=== PATIENT | female | born 1970 | race Caucasian/White ===

== ENCOUNTER 2018-05-09 05:16 | Observation (INO) ==
[2018-05-09] MEDS ORDERED: 0.9 % Sodium Chloride 1,000 ML IVC ONE ×2 (05:33→09:05)
[2018-05-09] MEDS ORDERED: Pantoprazole 40 MG VIAL IVP ONE (05:33)
[2018-05-09] MEDS ORDERED: Ketamine *HR* 14 MG in 0.9 % Sodium Chloride 100 ML IVPB ONE (05:34)
[2018-05-09] MEDS ORDERED: Isovue-370 500 ML INFUS..BTL IV ONE (05:34)
--- NOTE | 2018-05-09 05:37 | Emergency Department Note ---
Disposition Clinical Impression: Abdominal pain Qualifiers: Abdominal location: epigastric Qualified Code(s): R10.13 - Epigastric pain Disposition: Still a Patient Condition: Fair Referrals: Mau Ellis MD [Primary Care Provider] - Forms: ED Satisfaction Letter, Work/School Release Abdominal Pain HPI - General Chief Complaint: ED Abdominal Pain Stated Complaint: vomiting x2 days hx of pancreatitis Time Seen by Provider: 05/09/18 05:26 Source: patient Mode of arrival: ambulatory Limitations: no limitations Nursing Notes Reviewed: Yes Vital Signs Reviewed: Yes - History of Present Illness HPI Narrative: 47-year-old female with history of chronic pancreatitis, hypertension, presents for evaluation of abdominal pain and vomiting. Patient states she has had abdominal pain over the past couple days. Notes it to be in the epigastrium. Notes pain is constant. It patient also notes several episodes of nonbilious emesis. Patient states she is not been able to keep any food or liquids down. Patient states that she has required admissions for her chronic pancreatitis in the past. Reports having GB surgery in the past. Does admit to alcohol use in the remote past but no recent alcohol use. Denies any change in bowels or bladder. Pain Scale: 9 - Related Data Home Medications Medication Instructions Recorded Confirmed ALPRAZolam [Xanax 1 MG Tablet] 1 mg PO TID PRN 10/18/15 07/28/16 Carvedilol [Coreg] 25 mg PO BID 10/18/15 07/28/16 Omeprazole [PriLOSEC] 20 mg PO BID 10/18/15 07/28/16 Oxycodone HCl [Roxicodone 30] 30 mg PO Q6HR PRN 10/18/15 07/28/16 Tizanidine HCl [Zanaflex] 4 mg PO TID PRN 07/28/16 07/28/16 Previous Rx's Medication Instructions Recorded Amoxicillin 875 mg PO BID #20 tablet 11/10/16 DiphenhydraMINE [Benadryl] 25 mg PO Q8HR PRN #20 capsule 11/10/16 Guaifenesin/Pseudoephedrne HCl 1 each PO BID #20 tab.er.12h 11/10/16 [Mucinex D ER 1,200-120 mg Tab] Allergies Allergy/AdvReac Type Severity Reaction Status Date / Time cephalexin [From Keflex] AdvReac Chills Verified 07/22/17 13:28 sumatriptan [From Imitrex] AdvReac Nausea Verified 07/22/17 13:28 All systems ED: reviewed and negative except as stated. Constitutional: Denies: fever Respiratory: Denies: cough Gastrointestinal: Reports: abdominal pain, nausea, vomiting. Denies: diarrhea, constipation Abdominal Pain PMH - Past Medical History Medical history: Reports: hypertension Female Surgical History: Reports: angioplasty/stent, orthopedic, other Psychiatric history: Reports: no psych history - Social History Smoking status: Never smoker Alcohol use: Reports: none Drug use: Reports: none Physical Exam - General Limitations: no limitations General appearance: alert, in no apparent distress - Head Head exam: atraumatic, normocephalic, normal inspection - Eye Eye exam: Present: normal appearance - ENT ENT exam: normal exam, mucous membranes moist - Neck Neck exam: Present: normal inspection, trachea midline - Chest Chest inspection: Present: normal inspection, symmetric chest wall rise - Respiratory Respiratory exam: Present: normal lung sounds bilaterally. Absent: respiratory distress - Cardiovascular Cardiovascular exam: Present: regular rate, normal rhythm. Absent: systolic murmur - Abdominal Exam Abdominal exam: Present: soft, tenderness. Absent: guarding, rebound - Extremities Exam Extremities exam: Present: normal inspection. Absent: pedal edema - Back Exam Back exam: Present: normal inspection - Neurological Exam Neurological exam: Present: alert, oriented X3 - Skin Skin exam: Present: warm, dry, intact, normal color Course Course Narrative: Patient seen and examined. Patient appears uncomfortable. Patient will get basic labs, CT scan abd/pelvis. Disposition pending. - Reevaluation(s) Reevaluation #1: Patient is resting comfortably. Time: 06:16 Vital Signs Temperature 97.6 F 05/09/18 05:19 Pulse Rate 76 05/09/18 05:19 Respiratory Rate 18 05/09/18 05:19 Blood Pressure 130/85 05/09/18 05:19 O2 Sat by Pulse Oximetry 96 05/09/18 05:19 Temperature 97.6 F 05/09/18 05:19 Pulse Rate 73 05/09/18 06:13 Respiratory Rate 18 05/09/18 06:13 Blood Pressure 203/129 05/09/18 06:13 O2 Sat by Pulse Oximetry 98 05/09/18 06:13 Oxygen Delivery Oxygen Delivery Room Air Abdominal Pain - Lab Data Lab results reviewed: Yes I reviewed the patient's lab results. Result diagrams: 05/09/18 05:33 05/09/18 05:33 Lab Results 05/09/18 05/09/18 05/09/18 Range/Units 05:33 05:33 05:43 WBC 13.5 H (4.3-11.1) K/mcL RBC 5.27 H (3.82-4.97) M/mcL Hgb 16.8 H (11.5-15.4) g/dL Hct 46.4 H (35.3-44.9) % MCV 88.0 (83.0-100.0) fL MCH 31.9 (28.0-33.3) pg MCHC 36.2 H (31.6-35.5) g/dL RDW 12.0 (11.5-14.5) % Plt Count 315 (140-400) K/mcL MPV 9.5 (9.4-12.4) fL Immature Gran % 0.6 (0-4) % Seg Neutrophils % 76.7 % Lymphocytes % 14.3 % Monocytes % 7.9 % Eosinophils % 0.1 % Basophils % 0.4 % Neutrophils # 10.3 H (1.6-8.9) K/mcL Lymphocytes # 1.9 (0.6-4.6) K/mcL Monocytes # 1.1 (0.0-1.3) K/mcL Eosinophils # 0.0 (0.0-0.6) K/mcL Basophils # 0.1 (0.0-0.2) K/mcL Sodium 131 L (136-145) mEq/L Potassium 3.1 L (3.5-5.1) mEq/L Chloride 98 (98-107) mEq/L Carbon Dioxide 22 L (23-29) mEq/L BUN 30 H (6-20) mg/dL Creatinine 0.80 (0.60-1.20) mg/dL Est GFR ( Amer) > 60 (> 60) Est GFR (Non-Af Amer) > 60 (> 60) BUN/Creatinine Ratio 38 H (6-26) Glucose 159 H (70-105) mg/dL Calculated Osmolality 282 (280-300) Lactic Acid 0.9 (0.5-2.2) mmol/L Calcium 10.0 (8.6-10.3) mg/dL Magnesium 2.1 (1.6-2.6) mg/dL Total Bilirubin 1.3 H (0.3-1.0) mg/dL Direct Bilirubin 0.3 H (0.0-0.2) mg/dL Indirect Bilirubin 1.0 (0.0-1.2) mg/dL AST 17 (13-39) Units/L ALT 19 (7-52) Units/L Alkaline Phosphatase 55 (34-104) Units/L Troponin I < 0.03 (< 0.04) ng/mL Serum Total Protein 7.8 (6.4-8.9) g/dL Albumin 4.9 (3.5-5.7) g/dL Globulin 2.9 (2.4-3.5) g/dL Albumin/Globulin Ratio 1.7 (1.1-2.2) Lipase 45 (11-82) Units/L - Radiology Data Radiology results reviewed: Yes I reviewed the patient's radiology results. Vital Signs Temperature 97.6 F 05/09/18 05:19 Pulse Rate 76 05/09/18 05:19 Respiratory Rate 18 05/09/18 05:19 Blood Pressure 130/85 05/09/18 05:19 O2 Sat by Pulse Oximetry 96 05/09/18 05:19 Temperature 97.6 F 05/09/18 05:19 Pulse Rate 73 05/09/18 06:13 Respiratory Rate 18 05/09/18 06:13 Blood Pressure 203/129 05/09/18 06:13 O2 Sat by Pulse Oximetry 98 05/09/18 06:13 Oxygen Delivery Oxygen Delivery Room Air Abdomen/Pelvis CT 05/09/18 05:34 IMPRESSION: Mild bladder wall thickening. Recommend correlation with urinalysis to exclude cystitis. Mild intra and extrahepatic biliary ductal dilatation, similar to prior. No change in pulmonary nodule right lower lobe since 2011 D/ / Charles Olmedo MD / Charles Olmedo MD Interpreting Provider: Charles Olmedo MD - EKG Data EKG attestation: Yes I reviewed and interpreted this EKG. EKG shows normal: sinus rhythm Rate: normal Rhythm: NSR [place]/QRS: normal Q waves: aVR T wave inversions noted in: aVR, v1 Interpretation: no acute changes, nonspecific ST-T wave changes S.PrimitivoANela - Shaggy Situation: Demographics Background: Presenting Complaint Assessment: Vital Signs, Course and respsone to treatment, Patient/Family Expectation Recommendation: Barrier(s) to disposition, Recommendation based on pending studies, treatments, or consults SLuis AngelBLuis AngelANela Report Given to: Dr. Marleni Coon Repor Time: 07:01 Attestation Statement - Attestation Attestation: I examined this patient and my medical decision-making was reviewed with the Resident Physician. I agree with the documented findings, disposition and treatment plan as described except to the extent set forth below. Findings consistent with abdominal pain in the setting of history of pancreatitis. We will obtain CT scan to rule out pseudocyst, disposition will be pending results of advanced imaging. This patient will be signed out to Dr. Orourke.
[2018-05-09 05:54] LABS: Basophils # 0.1 K/mcL (0.0-0.2); Basophils % 0.4 %; Eosinophils % 0.1 %; Hematocrit 46.4 % (35.3-44.9); Hemoglobin 16.8 g/dL (11.5-15.4); Immature Granulocytes % 0.6 % (0-4); Lymphocytes # 1.9 K/mcL (0.6-4.6); Lymphocytes % 14.3 %; Mean Corpuscular HGB Conc 36.2 g/dL (31.6-35.5); Mean Corpuscular Hemoglobin 31.9 pg (28.0-33.3); Mean Platelet Volume 9.5 fL (9.4-12.4); Monocytes # 1.1 K/mcL (0.0-1.3); Monocytes % 7.9 %; Neutrophils # 10.3 K/mcL (1.6-8.9); Platelet Count 315 K/mcL (140-400); Red Blood Count 5.27 M/mcL (3.82-4.97); Segmented Neutrophils % 76.7 %
[2018-05-09 06:15] LABS: Troponin I < 0.03 ng/mL (< 0.04)
[2018-05-09 06:16] LABS: Alanine Aminotransferase 19 Units/L (7-52); Albumin 4.9 g/dL (3.5-5.7); Albumin/Globulin Ratio 1.7 (1.1-2.2); Alkaline Phosphatase 55 Units/L (34-104); Aspartate Amino Transferase 17 Units/L (13-39); BUN/Creatinine Ratio 38 (6-26); Bilirubin,Direct 0.3 mg/dL (0.0-0.2); Bilirubin,Total 1.3 mg/dL (0.3-1.0); Blood Urea Nitrogen 30 mg/dL (6-20); Carbon Dioxide 22 mEq/L (23-29); Chloride 98 mEq/L (98-107); Globulin 2.9 g/dL (2.4-3.5); Glucose 159 mg/dL (70-105); Lipase 45 Units/L (11-82); Osmolality,Calculated 282 (280-300); Potassium 3.1 mEq/L (3.5-5.1); Sodium 131 mEq/L (136-145); Total Protein 7.8 g/dL (6.4-8.9); eGFR For Non-African Americans > 60 (> 60)
[2018-05-09] MEDS ORDERED: Potassium Chloride Elixir 20 MEQ/15 ML UDC PO ONE (06:22)
[2018-05-09 06:36] LABS: Magnesium 2.1 mg/dL (1.6-2.6)
[2018-05-09 08:34] LABS: Bilirubin,Urine Negative (Negative); Blood,Urine Trace (Negative); Clarity,Urine Clear (Clear); Color,Urine Yellow (Yellow); Glucose,Urine (UA) Normal (Normal); Ketones,Urine Negative (Negative); Leukocyte Esterase,Urine Negative (Negative); Nitrite,Urine Negative (Negative); Protein,Urine Negative (Neg-Trace); Specific Gravity,Urine > 1.030 (1.010-1.025); Urobilinogen,Urine Normal (Normal)
[2018-05-09 08:36] LABS: Bacteria,Urine None Seen per hpf (None-Few); Hyaline Casts,Urine None Seen per lpf (None-Few); Squamous Epithelial Cell,Urine Many per lpf (None-Few); WBC,Urine 0-3 per hpf (0-3)
[2018-05-09] MEDS ORDERED: *HR* Promethazine 25 MG/ML VIAL IVP ONE (08:39)
--- NOTE | 2018-05-09 09:30 | Emergency Department Note ---
Disposition Clinical Impression: Abdominal pain Qualifiers: Abdominal location: epigastric Qualified Code(s): R10.13 - Epigastric pain Chronic pancreatitis Qualifiers: Pancreatitis type: unspecified pancreatitis type Qualified Code(s): K86.1 - Other chronic pancreatitis Disposition: Admitted As Inpatient Condition: Fair Time of Disposition: 09:32 Abdominal Pain HPI - General Chief Complaint: ED Abdominal Pain Stated Complaint: vomiting x2 days hx of pancreatitis Time Seen by Provider: 05/09/18 05:26 Source: patient Mode of arrival: ambulatory Nursing Notes Reviewed: Yes Vital Signs Reviewed: Yes - History of Present Illness Pain Scale: 9 - Related Data Home Medications Medication Instructions Recorded Confirmed Carvedilol [Coreg] 25 mg PO BID 10/18/15 05/09/18 Omeprazole [PriLOSEC] 20 mg PO BID 10/18/15 05/09/18 Allergies Allergy/AdvReac Type Severity Reaction Status Date / Time cephalexin [From Keflex] AdvReac Chills Verified 07/22/17 13:28 sumatriptan [From Imitrex] AdvReac Nausea Verified 07/22/17 13:28 Constitutional: Denies: fever Respiratory: Denies: cough Gastrointestinal: Reports: abdominal pain, nausea, vomiting. Denies: diarrhea, constipation Abdominal Pain PMH - Past Medical History Medical history: Reports: hypertension Female Surgical History: Reports: angioplasty/stent, orthopedic, other Psychiatric history: Reports: no psych history - Social History Smoking status: Never smoker Alcohol use: Reports: none Drug use: Reports: none Physical Exam - General Limitations: no limitations General appearance: alert, in no apparent distress Course Course Narrative: Patient signed out to me at [address] Hernandes. Briefly patient with epigastric abdominal pain, nausea and vomiting. Patient with history of chronic pancreatitis. Awaiting urine analysis. Lab work showed mild hypokalemia which was first placed with 40 mEq of oral potassium. - Reevaluation(s) Reevaluation #1: Urine analysis unremarkable. Upon reexamination of the patient, she is still having severe epigastric abdominal pain. She is still feeling slightly nauseated. More Phenergan was ordered. We will go ahead and admit for intractable nausea and vomiting and abdominal pain from chronic pancreatitis. I discussed with the hospitalist Dr. Jones who has accepted patient for admission. Time: 09:31 Vital Signs Temperature 97.6 F 05/09/18 05:19 Pulse Rate 76 05/09/18 05:19 Respiratory Rate 18 05/09/18 05:19 Blood Pressure 130/85 05/09/18 05:19 O2 Sat by Pulse Oximetry 96 05/09/18 05:19 Temperature 97.6 F 05/09/18 05:19 Pulse Rate 75 05/09/18 08:26 Respiratory Rate 18 05/09/18 10:00 Blood Pressure 203/145 05/09/18 10:00 O2 Sat by Pulse Oximetry 99 05/09/18 08:26 Oxygen Delivery Oxygen Delivery Room Air Abdominal Pain - Medical Records Medical records reviewed: Yes I reviewed the patient's medical records. - Lab Data Lab results reviewed: Yes I reviewed the patient's lab results. Result diagrams: 05/09/18 05:33 05/09/18 05:33 Lab Results 05/09/18 05/09/18 05/09/18 Range/Units 05:33 05:33 05:43 WBC 13.5 H (4.3-11.1) K/mcL RBC 5.27 H (3.82-4.97) M/mcL Hgb 16.8 H (11.5-15.4) g/dL Hct 46.4 H (35.3-44.9) % MCV 88.0 (83.0-100.0) fL MCH 31.9 (28.0-33.3) pg MCHC 36.2 H (31.6-35.5) g/dL RDW 12.0 (11.5-14.5) % Plt Count 315 (140-400) K/mcL MPV 9.5 (9.4-12.4) fL Immature Gran % 0.6 (0-4) % Seg Neutrophils % 76.7 % Lymphocytes % 14.3 % Monocytes % 7.9 % Eosinophils % 0.1 % Basophils % 0.4 % Neutrophils # 10.3 H (1.6-8.9) K/mcL Lymphocytes # 1.9 (0.6-4.6) K/mcL Monocytes # 1.1 (0.0-1.3) K/mcL Eosinophils # 0.0 (0.0-0.6) K/mcL Basophils # 0.1 (0.0-0.2) K/mcL Sodium 131 L (136-145) mEq/L Potassium 3.1 L (3.5-5.1) mEq/L Chloride 98 (98-107) mEq/L Carbon Dioxide 22 L (23-29) mEq/L BUN 30 H (6-20) mg/dL Creatinine 0.80 (0.60-1.20) mg/dL Est GFR ( Amer) > 60 (> 60) Est GFR (Non-Af Amer) > 60 (> 60) BUN/Creatinine Ratio 38 H (6-26) Glucose 159 H (70-105) mg/dL Calculated Osmolality 282 (280-300) Lactic Acid 0.9 (0.5-2.2) mmol/L Calcium 10.0 (8.6-10.3) mg/dL Magnesium 2.1 (1.6-2.6) mg/dL Total Bilirubin 1.3 H (0.3-1.0) mg/dL Direct Bilirubin 0.3 H (0.0-0.2) mg/dL Indirect Bilirubin 1.0 (0.0-1.2) mg/dL AST 17 (13-39) Units/L ALT 19 (7-52) Units/L Alkaline Phosphatase 55 (34-104) Units/L Lactate Dehydrogenase (140-271) Units/L Troponin I < 0.03 (< 0.04) ng/mL Serum Total Protein 7.8 (6.4-8.9) g/dL Albumin 4.9 (3.5-5.7) g/dL Globulin 2.9 (2.4-3.5) g/dL Albumin/Globulin Ratio 1.7 (1.1-2.2) Lipase 45 (11-82) Units/L Urine Color (Yellow) Urine Clarity (Clear) Urine pH (5.0-8.0) pH Units Ur Specific [place] (1.010-1.025) Urine Protein (Neg-Trace) mg/dL Urine Glucose (UA) (Normal) mg/dL Urine Ketones (Negative) mg/dL Urine Blood (Negative) Urine Nitrite (Negative) Urine Bilirubin (Negative) Urine Urobilinogen (Normal) mg/dL Ur Leukocyte Esterase (Negative) Urine Microscopic RBC (0-3) per hpf Urine Microscopic WBC (0-3) per hpf Ur Squamous Epith Cells (None-Few) per lpf Urine Bacteria (None-Few) per hpf Hyaline Casts (None-Few) per lpf Ur Culture Indicated? (NO) Ethyl Alcohol (Less than 10) mg/dL 05/09/18 05/09/18 05/09/18 Range/Units 08:25 09:45 09:45 WBC (4.3-11.1) K/mcL RBC (3.82-4.97) M/mcL Hgb (11.5-15.4) g/dL Hct (35.3-44.9) % MCV (83.0-100.0) fL MCH (28.0-33.3) pg MCHC (31.6-35.5) g/dL RDW (11.5-14.5) % Plt Count (140-400) K/mcL MPV (9.4-12.4) fL Immature Gran % (0-4) % Seg Neutrophils % % Lymphocytes % % Monocytes % % Eosinophils % % Basophils % % Neutrophils # (1.6-8.9) K/mcL Lymphocytes # (0.6-4.6) K/mcL Monocytes # (0.0-1.3) K/mcL Eosinophils # (0.0-0.6) K/mcL Basophils # (0.0-0.2) K/mcL Sodium (136-145) mEq/L Potassium (3.5-5.1) mEq/L Chloride (98-107) mEq/L Carbon Dioxide (23-29) mEq/L BUN (6-20) mg/dL Creatinine (0.60-1.20) mg/dL Est GFR ( Amer) (> 60) Est GFR (Non-Af Amer) (> 60) BUN/Creatinine Ratio (6-26) Glucose (70-105) mg/dL Calculated Osmolality (280-300) Lactic Acid 0.7 (0.5-2.2) mmol/L Calcium (8.6-10.3) mg/dL Magnesium (1.6-2.6) mg/dL Total Bilirubin (0.3-1.0) mg/dL Direct Bilirubin (0.0-0.2) mg/dL Indirect Bilirubin (0.0-1.2) mg/dL AST (13-39) Units/L ALT (7-52) Units/L Alkaline Phosphatase (34-104) Units/L Lactate Dehydrogenase 163 (140-271) Units/L Troponin I (< 0.04) ng/mL Serum Total Protein (6.4-8.9) g/dL Albumin (3.5-5.7) g/dL Globulin (2.4-3.5) g/dL Albumin/Globulin Ratio (1.1-2.2) Lipase (11-82) Units/L Urine Color Yellow (Yellow) Urine Clarity Clear (Clear) Urine pH 7.0 (5.0-8.0) pH Units Ur Specific [place] > 1.030 H (1.010-1.025) Urine Protein Negative (Neg-Trace) mg/dL Urine Glucose (UA) Normal (Normal) mg/dL Urine Ketones Negative (Negative) mg/dL Urine Blood Trace H (Negative) Urine Nitrite Negative (Negative) Urine Bilirubin Negative (Negative) Urine Urobilinogen Normal (Normal) mg/dL Ur Leukocyte Esterase Negative (Negative) Urine Microscopic RBC 3-5 H (0-3) per hpf Urine Microscopic WBC 0-3 (0-3) per hpf Ur Squamous Epith Cells Many H (None-Few) per lpf Urine Bacteria None Seen (None-Few) per hpf Hyaline Casts None Seen (None-Few) per lpf Ur Culture Indicated? NO (NO) Ethyl Alcohol < 10 (Less than 10) mg/dL - Radiology Data Radiology results reviewed: Yes I reviewed the patient's radiology results. Abdomen/Pelvis CT 05/09/18 05:34 IMPRESSION: Mild bladder wall thickening. Recommend correlation with urinalysis to exclude cystitis. Mild intra and extrahepatic biliary ductal dilatation, similar to prior. No change in pulmonary nodule right lower lobe since 2011 D/ / Charles Olmedo MD / Charles Olmedo MD Interpreting Provider: Charles Olmedo MD Chest X-Ray 05/09/18 06:36 IMPRESSION: 1. No active pulmonary disease. 2. Stable right lower lobe pulmonary nodule. D/ / Noman Mosqueda MD / Noman Mosqueda MD Interpreting Provider: Noman Mosqueda MD Attestation Statement - Attestation Attestation: I, Sp Orourke, examined this patient and my medical decision-making was reviewed with the COMPOUNDING TECHNICIAN/PA/Advanced Practice Nurse/Resident Physician. I agree with the documented findings, disposition and treatment plan as described except to the extent set forth below. 47-year-old female received in signout pending laboratory evaluation, reevaluation, disposition. Patient has epigastric pain and nausea and vomiting. Patient continues to have severe pain in the emergency department. She was given multiple doses of pain medication. Patient has a history of chronic pancreatitis. CT did not did not show significant abnormality. Troponin was normal. EKG did not show evidence of STEMI. Patient will be admitted to the hospitalist for further care and evaluation of intractable nausea and vomiting and pain.
--- NOTE | 2018-05-09 09:49 | Internal Med History&Physical ---
Date of Encounter: 05/09/18 Time of Encounter: 09:45 Internal Medicine - H&P: HPI Admitted From: Home Plans for Post Hospital Care: Home History of present illness: Ms. Thomas is a 47 year old female with history of chronic pancreatitis and hypertension presented to the ED with complaint of abdominal pain. She reports that her abdominal pain is located in the epigastric region, achy in nature, 5 out of 10 in severity, laying down alleviates the pain and sitting up aggravates the pain. Her pain started about 2 days ago and is constant in nature,nonradiating. She reports previous admissions for pancreatitis and describes her pain as similar to previous episodes. Her abdominal pain is also associated with nausea and vomiting, she denies hematemesis, melena, hematochezia. She is been unable to keep solids or liquids down for the past 2 days. She is not taking any of her medications prescribed. In addition to nausea vomiting and abdominal pain she also complains of retrosternal chest pain, that is burning in nature, nonradiating, 2 out of 10, not associated with exertion, no history of heart disease, no family history of heart disease, not associated with diaphoresis. It started after she vomited multiple times. Alleviated when she is not vomiting, aggravated by vomiting. She has not taken anything to alleviate the pain. She denies drinking alcohol, reports last drink was Months to go, denies illicit drug use, denies fever, chills, palpitations, shortness of breath, diarrhea, heat or cold intolerance, no trauma to the chest, abdomen, or head. Denies headache or vision loss. Past Med Surg Social Fam HX - Past Medical History Medical history: hypertension Additional medical history: pancreatitis Psychiatric history: no psych history - Past Surgical History Additional surgical history: HEART CATH X2, BACK SURGERIES - Social History Smoking Status: Never smoker Smokeless Tobacco Status: No Alcohol use: none Drug use: none - Family History Mother Living Status: Hx Family Respiratory Disorders: Yes Father Living Status: Hx Family Respiratory Disorders: Yes Hx Family Cancer: Yes (Lung) Internal Medicine - H&P: Meds Carvedilol [Coreg] 25 mg PO BID 10/18/15 [History] Omeprazole [PriLOSEC] 20 mg PO BID 10/18/15 [History] 3 Allergy/AdvReac Type Severity Reaction Status Date / Time cephalexin [From Keflex] AdvReac Chills Verified 07/22/17 13:28 sumatriptan [From Imitrex] AdvReac Nausea Verified 07/22/17 13:28 All Systems PM: review of systems was performed and is negative for pertinent findings except as documented above in the HPI. - Constitutional Vitals: Temp Pulse Resp BP Pulse Ox 97.6 F 73 18 203/129 98 05/09/18 05:19 05/09/18 06:13 05/09/18 06:13 05/09/18 06:13 05/09/18 06:13 - Other Additional findings: General: Patient is alert, oriented, no acute distress, Head: atraumatic, normocephalic, Eye: normal appearance, PERRL, no scleral icterus, no conjunctival injection ENT: mucous membranes moist, normal external ear exam Neck: normal inspection, trachea midline, full ROM, no carotid bruits Chest: normal inspection, symmetric chest rise Respiratory: Good respiratory effort. Bilateral breath sounds are clear without wheezing, crackles, or rhonchi. Cardiovascular: Regular rate and rhythm. s1 and s2 No clicks, rubs, gallops, or murmors. Abdomen: Bowel sounds present normoactive x-4 quadrants. Abdomen is soft, nondistended. +ve Epigastric tenderness. No guarding or rebound. No organomegaly noted, no flank discoloration, murphysign negative musculoskeletal: Spontaneously moving all extremities. no edema, no calf tenderness Skin: warm, dry, intact. Neuro: Alert and oriented x4. Sensation light touch intact. Cranial nerves 2- 12 is intact. Not aphasic, 5/5 strength in all extremities, no nystagmus Psych: Patient's affect is normal Internal Med - H&P Results - Labs CBC & Chem 7: 05/09/18 05:33 05/09/18 05:33 - EKG Data Prior EKG available for review: yes When compared to previous EKG: there is no significant change (sinus rhythm, Qt 423) - Assessment and plan (1) Abdominal pain Current Visit: Yes Status: Acute Assessment and plan: most likely secondary to chronic pancreatitis vs viral gastroenteritis CT A/P negative for pancreatic inflammation CT A/P showed mild intrahepatic biliary dilation, CBD 0.9 cm, previously 1.1 CM s/p EGD/EUS by GI on 07/28/16 will continue IV hydration with LR at 125 ml/hr pain control zofran Q8H PRN for nausea and vomiting protonxi IVPB will follow with serial abdominal exams cbc adb bmp in the AM Utox, alcohol level Qualifiers: Abdominal location: epigastric Qualified Code(s): R10.13 - Epigastric pain (2) Hypertensive urgency Current Visit: Yes Status: Acute Assessment and plan: not compliant to antihypertensives vs pain induced will give amlodipine 10 mg now will restart her home medications vitals as per protocol tele monitoring serial troponins and EKGS (3) Chronic pancreatitis Current Visit: Yes Status: Acute Assessment and plan: secondary to alcohol use - reports no recent alcohol use no significant inflammation on the CT abdomen, and lipase WNL mildly hemoconcentrated secondary to most likely dehydration will keep her NPO now morphine 2mg Q6H PRN for pain received 2L NS in the ED will continue with LR at 125 ml/hr for 12 hours - watch for over load LDH, lactic acid sent lipid panel, alcohol, utox stat Qualifiers: Pancreatitis type: unspecified pancreatitis type Qualified Code(s): K86.1 - Other chronic pancreatitis (4) Gastritis Current Visit: No Status: Resolved Assessment and plan: will give her PPI zofran PRN IVF Qualifiers: Gastritis type: other gastritis Chronicity: acute Gastritis bleeding: without bleeding Qualified Code(s): K29.00 - Acute gastritis without bleeding (5) Chest pain Current Visit: Yes Status: Acute Assessment and plan: chest pain r/o acs vs uncontrolled BP ( BP on presentation was 203/129) stress test on 08/06/17- Low level exercise/ pharmacologic stress ECG is negative for ischemia at level of heart rate achieved. Gated EF > 70%. Perfusion imaging was negative for ischemia or infarct telemonitoring serial EKGs and troponins BP control Qualifiers: Chest pain type: unspecified Qualified Code(s): R07.9 - Chest pain, unspecified (6) Hypokalemia Current Visit: Yes Status: Acute Assessment and plan: check magnesium was repalced in [facility] with 40 meq of orak KCL but she vomited the medication repalced with 40 meq IVP as she is NPO follow AM labs and monitor electrolytes (7) DVT prophylaxis Current Visit: Yes Status: Acute Assessment and plan: heparin 5000 units Q8H SC - Time Spent With Patient Total time spent is greater than 50% in coordination of care (as documented) at patient's floor/unit and/or counseling patient:
[2018-05-09] MEDS ORDERED: Acetaminophen 325 MG TABLET PO PRN (10:10)
[2018-05-09 10:14] LABS: Ethanol < 10 mg/dL (Less than 10); Lactate Dehydrogenase 163 Units/L (140-271)
[2018-05-09 10:53] LABS: INR 1.1
[2018-05-09 10:56] LABS: Activated Partial Thrombo Time 34.8 Seconds (26.0-36.0)
[2018-05-09] MEDS: amLODIPine 5 MG TABLET PO SCH (10:59)
[2018-05-09] MEDS: Ringers Solution, Lactated 1,000 ML IVC SCH ×2 (11:04→19:43)
[2018-05-09] MEDS: *HR* Morphine 2 MG/ML SYRINGE IVP PRN ×2 (11:05→17:49)
[2018-05-09 11:07] LABS: Chol/HDL Ratio 4.7 (0-4.9); Cholesterol 203 mg/dL (< 200); HDL Cholesterol 43 mg/dL (40-59); LDL Cholesterol,Calculated 135 mg/dL (0-99); Phosphorous 2.2 mg/dL (2.7-4.5); Triglycerides 123 mg/dL (< 150); Troponin I < 0.03 ng/mL (< 0.04)
[2018-05-09] MEDS: Ondansetron 4 MG/2 ML VIAL IVP PRN ×2 (11:17→19:31)
[2018-05-09 12:01] LABS: Amphetamine Screen,Urine Negative ng/mL (Cutoff=1000); Barbiturate Screen,Urine Negative ng/mL (Cutoff=200); Benzodiazepines Screen,Urine Negative ng/mL (Cutoff=200); Cannabinoid Screen,Urine Positive ng/mL (Cutoff = 50); Cocaine Screen,Urine Negative ng/mL (Cutoff= 300); Opiate Screen,Urine Negative ng/mL (Cutoff=300); Phencyclidine Screen,Urine Negative ng/mL (Cutoff=25)
[2018-05-09] MEDS: *HR* Heparin 5,000 UNIT/ML VIAL SQ SCH ×2 (14:49→22:06)
--- NOTE | 2018-05-09 17:09 | Electrocardiograph Report ---
[address] [place], [place] [address] Test Date: 2018-05-09 Pat Name: Cecy Thomas Department: 115 Room: 3A46 Gender: F Hotel Custodian: ROCHELLE : 1970 Requested By: [id number] Order Number: [id number] Reading MD: Tracy Hardin Measurements Intervals [place] Rate: 79 P: 25 [place]: 161 QRS: 0 QRSD: 88 T: 4 QT: 379 QTc: 414 Interpretive Statements SINUS RHYTHM MINIMAL VOLTAGE CRITERIA FOR LVH, CONSIDER NORMAL VARIANT Electronically Signed On 05-09-2018 17:08:19 EDT by Tracy Hardin
--- NOTE | 2018-05-09 17:10 | Electrocardiograph Report ---
[address] [address] Test Date: 2018-05-09 Pat Name: Cecy Thomas Department: 115 Room: 3A46 Gender: F [employer] Senior Officer: ROCHELLE : 1970 Requested By: [id number] Order Number: [id number] Reading MD: Trayc Hardin Measurements Intervals [place] Rate: 75 P: -15 MA: 137 QRS: 1 QRSD: 91 T: 2 QT: 390 QTc: 419 Interpretive Statements SINUS RHYTHM MINIMAL VOLTAGE CRITERIA FOR LVH, CONSIDER NORMAL VARIANT Electronically Signed On 05-09-2018 17:08:25 EDT by Tracy Hardin
[2018-05-09] MEDS: Pantoprazole 40 MG VIAL IVP SCH (18:57)
--- NOTE | 2018-05-09 21:58 | Electrocardiograph Report ---
[facility] Test Date: 2018-05-09 Pat Name: Cecy Thomas Department: 103 Room: 3A46 Gender: F Credit Operations Processor: TIESHA : 1970 Requested By: Genaro Hernandes Order Number: [id number] Reading MD: Lakhwinder Adkins Measurements Intervals [place] Rate: 68 P: -18 AR: 124 QRS: 22 QRSD: 97 T: 20 QT: 409 QTc: 427 Interpretive Statements SINUS RHYTHM Electronically Signed On 05-09-2018 21:57:26 EDT by Lakhwinder Adkins
--- NOTE | 2018-05-09 21:59 | Electrocardiograph Report ---
[facility] ? Test Date: 2018-05-09 Pat Name: Cecy Thomas Department: 103 Room: 3A46 Gender: F Flavor Maker: TIESHA : 1970 Requested By: Sp Orourke Order Number: [id number] Reading MD: Lakhwinder Adkins Measurements Intervals [place] Rate: 80 P: -23 TN: 142 QRS: 2 QRSD: 92 T: -4 QT: 388 QTc: 423 Interpretive Statements SINUS RHYTHM WARNING: DATA QUALITY MAY AFFECT INTERPRETATION Electronically Signed On 05-09-2018 21:58:22 EDT by Lakhwinder Adkins
[2018-05-10] MEDS: Ondansetron 4 MG/2 ML VIAL IVP PRN ×3 (00:04→19:17)
[2018-05-10] MEDS: *HR* Morphine 2 MG/ML SYRINGE IVP PRN ×2 (00:04→06:17)
[2018-05-10] MEDS: *HR* Heparin 5,000 UNIT/ML VIAL SQ SCH ×3 (05:43→21:42)
[2018-05-10 05:53] LABS: Basophils # 0.1 K/mcL (0.0-0.2); Basophils % 0.4 %; Eosinophils % 0.1 %; Hematocrit 42.4 % (35.3-44.9); Hemoglobin 15.3 g/dL (11.5-15.4); Immature Granulocytes % 0.4 % (0-4); Lymphocytes # 2.1 K/mcL (0.6-4.6); Lymphocytes % 18.1 %; Mean Corpuscular HGB Conc 36.1 g/dL (31.6-35.5); Mean Corpuscular Hemoglobin 32.3 pg (28.0-33.3); Mean Corpuscular Volume 89.5 fL (83.0-100.0); Mean Platelet Volume 9.6 fL (9.4-12.4); Monocytes % 8.5 %; Neutrophils # 8.2 K/mcL (1.6-8.9); Platelet Count 279 K/mcL (140-400); Red Blood Count 4.74 M/mcL (3.82-4.97); Red Cell Distribution Width 11.9 % (11.5-14.5); Segmented Neutrophils % 72.5 %
[2018-05-10 06:16] LABS: BUN/Creatinine Ratio 23 (6-26); Blood Urea Nitrogen 14 mg/dL (6-20); Calcium 9.4 mg/dL (8.6-10.3); Carbon Dioxide 21 mEq/L (23-29); Chloride 102 mEq/L (98-107); Glucose 108 mg/dL (70-105); Osmolality,Calculated 277 (280-300); Potassium 3.4 mEq/L (3.5-5.1); Sodium 133 mEq/L (136-145); eGFR For Non-African Americans > 60 (> 60)
[2018-05-10] MEDS: amLODIPine 5 MG TABLET PO SCH (09:59)
[2018-05-10] MEDS: Pantoprazole 40 MG VIAL IVP SCH (10:00)
[2018-05-10] MEDS: *HR* OxyCODONE/APAP 5/325 TABLET PO PRN ×3 (11:46→20:08)
[2018-05-10] MEDS ORDERED: *HR* Morphine 2 MG/ML SYRINGE IVP ONE (13:43)
--- NOTE | 2018-05-10 13:52 | Internal Med Progress Note ---
Hospitalist Progress Note - Encounter Date of Encounter: 05/10/18 Time of Encounter: 10:00 - Subjective Interval History: Ms. Thomas is a 47 year old female with history of chronic pancreatitis and hypertension presented to the ED with complaint of abdominal pain and chest pain so she was admitted on 05/09/18 for gastritis, chest pain r/o ACS and chronic pancreatitis. CT abdomen and pelvis was negative for any pancreatic inflammation. Patient was seen and examined at bedside she reports that her abdominal pain has nearly resolved, rates her pain as a 2 out of 10, she denies any episodes of emesis overnight, denies nausea or diarrhea. She reports she is hungry and she would like to eat. On admission her systolic blood pressure was 220 which was controlled with resolution of her chest pain, 2 troponins were followed and were negative. Currently she denies any chest pain, palpitations, shortness of breath. denies fever, chills, palpitations, shortness of breath, diarrhea, heat or cold intolerance, no trauma to the chest, abdomen, or head. Denies headache or vision loss. On admission she denied any drug use however urine toxicology is positive for marijuana. - Exam Vitals: Temp Pulse Resp BP Pulse Ox 98.6 F 76 16 163/103 97 05/10/18 11:06 05/10/18 11:06 05/10/18 11:06 05/10/18 11:06 05/10/18 11:06 Exam: General: Patient is alert, oriented, no acute distress, Head: atraumatic, normocephalic, Eye: normal appearance, PERRL, no scleral icterus, no conjunctival injection ENT: mucous membranes moist, normal external ear exam Neck: normal inspection, trachea midline, full ROM, no carotid bruits Chest: normal inspection, symmetric chest rise Respiratory: Good respiratory effort. Bilateral breath sounds are clear without wheezing, crackles, or rhonchi. Cardiovascular: Regular rate and rhythm. s1 and s2 No clicks, rubs, gallops, or murmors. Abdomen: Bowel sounds present normoactive x-4 quadrants. Abdomen is soft, nondistended. -ve Epigastric tenderness. No guarding or rebound. No organomegaly noted, no flank discoloration, murphysign negative musculoskeletal: Spontaneously moving all extremities. no edema, no calf tenderness Skin: warm, dry, intact. Neuro: Alert and oriented x4. Sensation light touch intact. Cranial nerves 2- 12 is intact. Not aphasic, 5/5 strength in all extremities, no nystagmus Psych: Patient's affect is normal - Assessment and Plan (1) Abdominal pain Current Visit: Yes Status: Acute Assessment and Plan: now nearly resolved CT A/P negative for pancreatic inflammation CT A/P showed mild intrahepatic biliary dilation, CBD 0.9 cm, previously 1.1 CM s/p EGD/EUS by GI on 07/28/16 will continue IV hydration with LR at 125 ml/hr for now pain control with oxycodone will start her on PO zofran Q8H PRN for nausea and vomiting PPI orally will start her on soft diet and increae as tolerated sicne her pain has resolved will consult GI if her pain returns consult to pain management cbc and bmp in the AM (2) Chronic pancreatitis Current Visit: Yes Status: Acute Assessment and Plan: CT A/P negative for pancreatic inflammation CT A/P showed mild intrahepatic biliary dilation, CBD 0.9 cm, previously 1.1 CM s/p EGD/EUS by GI on 07/28/16 will continue IV hydration with LR at 125 ml/hr for now pain control with oxycodone will start her on PO zofran Q8H PRN for nausea and vomiting PPI orally will start her on soft diet and increae as tolerated sicne her pain has resolved will consult GI if her pain returns consult to pain management cbc and bmp in the AM (3) Gastritis Current Visit: No Status: Acute Assessment and Plan: We will continue oral PPI and Zofran when necessary for nausea (4) Hypokalemia Current Visit: Yes Status: Acute Assessment and Plan: Magnesium 2.0 Was replaced with 40 Meq of IV KCl Potassium has improved from 3.1-3.4 Will replace with 40 meq of oral KCL follow AM labs and monitor electrolytes (5) HTN (hypertension) Current Visit: Yes Status: Acute Assessment and Plan: not compliant to antihypertensives ( last filled her prescrition in september) amlodipine 10 mg started HCTZ 12.5 mg started vitals as per protocol (6) DVT prophylaxis Current Visit: Yes Status: Acute Assessment and Plan: heparin 5000 units Q8H SC (7) Hypertensive urgency Current Visit: Yes Status: Resolved (8) Chest pain Current Visit: Yes Status: Resolved DVT Prophylaxis: heparin 5000 units Q8H SC - Time Spent with Patient Total time spent is greater than 50% in coordination of care (as documented) at patient's floor/unit and/or counseling patient: Plan of Care Discussed with: nurse Internal Medicine: Result - Labs CBC & Chem 7: 05/10/18 05:18 05/10/18 05:18 Labs: Short CBC 05/10/18 Range/Units 05:18 WBC 11.4 H (4.3-11.1) K/mcL Hgb 15.3 D (11.5-15.4) g/dL Hct 42.4 (35.3-44.9) % Plt Count 279 (140-400) K/mcL Neutrophils # 8.2 (1.6-8.9) K/mcL BMP 05/10/18 05:18 Sodium 133 L Potassium 3.4 L Chloride 102 Carbon Dioxide 21 L BUN 14 Creatinine 0.60 Glucose 108 H Calcium 9.4 Cardiac Enzymes 05/09/18 Range/Units 17:37 Troponin I < 0.03 (< 0.04) ng/mL - ABG Interpretation ABG results: PT/INR, D-dimer PT 12.0 Seconds (9.4-12.1) 05/09/18 10:26 Consult Discharge Plan - Plan Referrals: Mau Ellis MD [Primary Care Provider] - (1) Abdominal pain Qualifiers: Abdominal location: epigastric Qualified Code(s): R10.13 - Epigastric pain (2) Chronic pancreatitis Qualifiers: Pancreatitis type: unspecified pancreatitis type Qualified Code(s): K86.1 - Other chronic pancreatitis (3) Gastritis Qualifiers: Gastritis type: other gastritis Chronicity: acute Gastritis bleeding: without bleeding Qualified Code(s): K29.00 - Acute gastritis without bleeding (5) HTN (hypertension) Qualifiers: Hypertension type: essential hypertension Qualified Code(s): I10 - Essential (primary) hypertension (8) Chest pain Qualifiers: Chest pain type: unspecified Qualified Code(s): R07.9 - Chest pain, unspecified
[2018-05-10] MEDS ORDERED: Ringers Solution, Lactated 1,000 ML IVC SCH (17:30)
[2018-05-10] MEDS ORDERED: *HR* LORazepam 2 MG/ML VIAL IVP ONE (20:15)
[2018-05-11] MEDS: *HR* OxyCODONE/APAP 5/325 TABLET PO PRN ×3 (01:30→10:21)
[2018-05-11] MEDS: *HR* Heparin 5,000 UNIT/ML VIAL SQ SCH (06:06)
[2018-05-11 06:43] LABS: BUN/Creatinine Ratio 28 (6-26); Blood Urea Nitrogen 18 mg/dL (6-20); Calcium 9.3 mg/dL (8.6-10.3); Carbon Dioxide 22 mEq/L (23-29); Chloride 101 mEq/L (98-107); Glucose 97 mg/dL (70-105); Osmolality,Calculated 276 (280-300); Potassium 3.5 mEq/L (3.5-5.1); Sodium 132 mEq/L (136-145); eGFR For Non-African Americans > 60 (> 60)
[2018-05-11 07:06] LABS: Hematocrit 40.4 % (35.3-44.9); Hemoglobin 14.3 g/dL (11.5-15.4); Mean Corpuscular HGB Conc 35.4 g/dL (31.6-35.5); Mean Corpuscular Hemoglobin 31.6 pg (28.0-33.3); Mean Corpuscular Volume 89.2 fL (83.0-100.0); Mean Platelet Volume 9.5 fL (9.4-12.4); Platelet Count 284 K/mcL (140-400); Red Blood Count 4.53 M/mcL (3.82-4.97)
[2018-05-11] MEDS: amLODIPine 5 MG TABLET PO SCH (08:56)
[2018-05-11] MEDS: Ondansetron 4 MG/2 ML VIAL IVP PRN (08:59)
[2018-05-11] MEDS ORDERED: hydroCHLOROthiazide 25 MG TABLET PO SCH (09:00)
--- NOTE | 2018-05-11 09:58 | Discharge Summary ---
- NOTES TO OUTPATIENT PROVIDER Notes to Outpatient Provider: follow up with drag out worker. if continue to have epigastric pain consider following at [facility] for further recommendations for chronic pancreatitis pain. follow BP log and adjust medications Date of Encounter: 05/11/18 Time of Encounter: 09:51 - Discharge Diagnosis (1) Abdominal pain Priority: Primary Status: Acute Qualifiers: Abdominal location: epigastric Qualified Code(s): R10.13 - Epigastric pain (2) Chronic pancreatitis Priority: Secondary Status: Acute Qualifiers: Pancreatitis type: unspecified pancreatitis type Qualified Code(s): K86.1 - Other chronic pancreatitis (3) Gastritis Priority: Secondary Status: Acute Qualifiers: Gastritis type: other gastritis Chronicity: acute Gastritis bleeding: without bleeding Qualified Code(s): K29.00 - Acute gastritis without bleeding (4) Hypokalemia Priority: Secondary Status: Acute (5) HTN (hypertension) Priority: Secondary Status: Acute Qualifiers: Hypertension type: essential hypertension Qualified Code(s): I10 - Essential (primary) hypertension (6) DVT prophylaxis Priority: Secondary Status: Acute (7) Hypertensive urgency Priority: Secondary Status: Resolved (8) Chest pain Priority: Secondary Status: Resolved Qualifiers: Chest pain type: unspecified Qualified Code(s): R07.9 - Chest pain, unspecified Hospital course: Ms. Thomas is a 47 year old female chronic pancreatitis and hypertension presented to the ED with complaint of abdominal pain. She reports that her abdominal pain is located in the epigastric region, achy in nature, 5 out of 10 in severity, laying down alleviates the pain and sitting up aggravates the pain. Her pain started about 2 days ago and is constant in nature, nonradiating. She reports previous admissions for pancreatitis and describes her pain as similar to previous episodes. Her abdominal pain is also associated with nausea and vomiting, she denies hematemesis, melena, hematochezia. She is been unable to keep solids or liquids down for the past 2 days. She is not taking any of her medications prescribed. In addition to nausea vomiting and abdominal pain she also complains of retrosternal chest pain, that is burning in nature, nonradiating, 2 out of 10, not associated with exertion, no history of heart disease, no family history of heart disease, not associated with diaphoresis. It started after she vomited multiple times. Alleviated when she is not vomiting, aggravated by vomiting. She has not taken anything to alleviate the pain. She denies drinking alcohol, reports last drink was Months to go, denies illicit drug use, denies fever, chills, palpitations, shortness of breath, diarrhea, heat or cold intolerance, no trauma to the chest, abdomen, or head. Denies headache or vision loss. She was admitted due to above presentation. She was treated with IV fluid, pain medications, bowel rest, and anti-emetics. Her condition improved, electrolytes were replaced, she was able to tolerate by mouth diet. She was told to follow up with [facility] for further management of her chronic pancreatitis pain. She was told to keep a blood pressure log and take to her PCP in one week to adjust BP medications. she was counseled on risks of associated with alcohol use. was counseled on drug cessation adn risks associated with illicit drug use. Discharge discussed with: patient, nurse - Time Spent with Patient Total time spent providing and/or coordinating discharge services: Less than 30 minutes - Discharge Medications Prescriptions: Carvedilol [Coreg] 6.25 mg PO BIDWM 30 Days #60 tablet Home Medications: Carvedilol [Coreg] 6.25 mg PO BIDWM 30 Days #60 tablet 05/11/18 [Rx] Omeprazole [PriLOSEC] 20 mg PO BID 30 Days #60 tab 05/11/18 [Rx] OxyCODONE/APAP 5/325 [Percocet 5/325 MG] 1 each PO Q4HR PRN 2 Days #8 tablet 10/28 [Rx] amLODIPine [Norvasc] 10 mg PO DAILY tablet 05/11/18 [Rx] Allergies/Adverse Reactions: 3 Allergy/AdvReac Type Severity Reaction Status Date / Time cephalexin [From Keflex] AdvReac Chills Verified 07/22/17 13:28 sumatriptan [From Imitrex] AdvReac Nausea Verified 07/22/17 13:28 Date of admission: 05/09/18 09:31 Primary care physician: Mau Ellis MD Consults: 05/10/18 13:26 Consult to Pain Management [CONS] Routine Consulting Provider: Pain Mgt Interventional Samia Reason for Consult: Pain control Call Completed: No 05/10/18 13:44 Consult to Gastroenterology [CONS] Routine Consulting Provider: Gastroenterology Samia Reason for Consult: chronci pancreatitis, gastritis, epigastric pain, unable to tolerate diet developed pain Call Completed: No - Constitutional Vitals: Temp Pulse Resp BP Pulse Ox 98.1 F 78 16 142/90 96 05/11/18 06:52 05/11/18 06:52 05/11/18 06:52 05/11/18 06:52 05/11/18 06:52 Exam: General: Patient is alert, oriented, no acute distress, Head: atraumatic, normocephalic, Eye: normal appearance, PERRL, no scleral icterus, no conjunctival injection ENT: mucous membranes moist, normal external ear exam Neck: normal inspection, trachea midline, full ROM, no carotid bruits Chest: normal inspection, symmetric chest rise Respiratory: Good respiratory effort. Bilateral breath sounds are clear without wheezing, crackles, or rhonchi. Cardiovascular: Regular rate and rhythm. s1 and s2 No clicks, rubs, gallops, or murmors. Abdomen: Bowel sounds present normoactive x-4 quadrants. Abdomen is soft, nondistended. -ve Epigastric tenderness. No guarding or rebound. No organomegaly noted, no flank discoloration, murphysign negative musculoskeletal: Spontaneously moving all extremities. no edema, no calf tenderness Skin: warm, dry, intact. Neuro: Alert and oriented x4. Sensation light touch intact. Cranial nerves 2- 12 is intact. Not aphasic, 5/5 strength in all extremities, no nystagmus Psych: Patient's affect is normal - Patient Status Disposition: Home, Self-Care Condition: Good Overall status at discharge: patient is progressing back to baseline - Discharge Instructions Follow Up With: Mau Ellis MD [Primary Care Provider] - - Diet and Activity Activity: increase activity as tolerated Diet: low salt diet
[2018-05-11 10:45] VITALS: BP 129/82
--- NOTE | 2018-05-11 15:39 | Gastroenterology Consult Note ---
Date of Encounter: 05/11/18 Time of Encounter: 11:45 - Assessment and plan (1) Abdominal pain Status: Acute Assessment and plan: Pt has chronic pancreatitis but is also complaining of burning epigastric pain. Was planning for EGD today but pt already ate. Hospitalist is sending pt home today will follow up as outpatient for EGD. Qualifiers: Abdominal location: epigastric Qualified Code(s): R10.13 - Epigastric pain (2) Chronic pancreatitis Status: Acute Assessment and plan: Labs WNL, will follow as outpatient Qualifiers: Pancreatitis type: unspecified pancreatitis type Qualified Code(s): K86.1 - Other chronic pancreatitis - Time Spent With Patient Total time spent is greater than 50% in coordination of care (as documented) at patient's floor/unit and/or counseling patient: GI History of Present Illness - Data of Consult Patient: new to practice Consult date: 05/11/18 Requesting Physician: Ira De Oliveira MD - Consult Narrative Reason for consult: pancreatitis/abdominal pain nausea and vomiting History of present illness: Ms. Thomas is a 47 year old female with history of chronic pancreatitis and hypertension presented to the ED with complaint of abdominal pain. She reports that her abdominal pain is located in the epigastric region, achy in nature, 5 out of 10 in severity, laying down alleviates the pain and sitting up aggravates the pain. Her pain started about 2 days ago and is constant in nature,nonradiating. She reports previous admissions for pancreatitis and describes her pain as similar to previous episodes. Her abdominal pain is also associated with nausea and vomiting, she denies hematemesis, melena, hematochezia. She has been unable to keep solids or liquids down for the past 2 days. She is not taking any of her medications prescribed. In addition to nausea vomiting and abdominal pain she also complains of retrosternal chest pain , that is burning in nature, nonradiating, 2 out of 10, not associated with exertion, no history of heart disease, no family history of heart disease, not associated with diaphoresis. It started after she vomited multiple times. Alleviated when she is not vomiting, aggravated by vomiting. She has not taken anything to alleviate the pain. She denies drinking alcohol, reports last drink was several months ago, denies illicit drug use, denies fever, chills, palpitations, shortness of breath, diarrhea, heat or cold intolerance, no trauma to the chest, abdomen, or head. Denies headache or vision loss. 07/26 normal EGD anticoagulant: heparin on hold Past Med Surg Social Fam HX - Past Medical History Medical history: hypertension Additional medical history: pancreatitis Psychiatric history: no psych history - Past Surgical History Surgical History: cholecystectomy Additional surgical history: HEART CATH X2, BACK SURGERIES - Social History Smoking Status: Never smoker Smokeless Tobacco Status: No Alcohol use: none Drug use: none - Family History Mother Living Status: Hx Family Respiratory Disorders: Yes Father Living Status: Hx Family Respiratory Disorders: Yes Hx Family Cancer: Yes (Lung) Review of Systems: GI: as per [facility] GENERAL: denies fever, or chills EYES: denies yellow discoloration ENT: denies pain with swallowing or difficulty swallowing CARDIO: denies chest pain, palpitations RESP: Shortness of breath with exertion : denies change in color of urine NEURO: denies any weakness HEME: Denies any bruising MS: denies joint pain, joint swelling or back pain. DERM: denies rash or itching PSYCH: Denies history of anxiety or depression - Constitutional Vitals: Temp Pulse Resp BP Pulse Ox 98.5 F 84 16 129/82 93 05/11/18 10:38 05/11/18 10:38 05/11/18 10:38 05/11/18 10:38 05/11/18 10:38 Exam: CONSTITUTIONAL:~alert, no acute distress.~HEAD:~normocephalic.~EYES:~no jaundice.~NECK:~no obvious swelling.~HEART:~regular rate and rhythm, no murmurs. ~LUNGS:~bilateral good air entry.~ABDOMEN:~non distended, soft, non tender, no masses palpable, no organomegaly.~RECTAL EXAM:~Deferred.~EXTREMITIES:~no clubbing, cyanosis or edema.~SKIN:~no stigmata of chronic liver disease.~ NEUROLOGIC:~no obvious focal defect.~~~~ Results - Labs CBC & Chem 7: 05/11/18 05:59 05/11/18 05:59 Labs: Last Result Calcium 9.3 mg/dL (8.6-10.3) 05/11/18 05:59 Troponin I < 0.03 ng/mL (< 0.04) 05/09/18 17:37 Triglycerides 123 mg/dL (< 150) 05/09/18 10:26 Urine Opiates Screen Negative ng/mL (Hrxyjx=208) 05/09/18 08:25 Entire Visit Hgb 14.3 g/dL (11.5-15.4) 05/11/18 05:59 Hct 40.4 % (35.3-44.9) 05/11/18 05:59 PT 12.0 Seconds (9.4-12.1) 05/09/18 10:26 Total Bilirubin 1.3 mg/dL (0.3-1.0) H 05/09/18 05:33 AST 17 Units/L (13-39) 05/09/18 05:33 ALT 19 Units/L (7-52) 05/09/18 05:33 Lipase 45 Units/L (11-82) 05/09/18 05:33 - ABG ABG results: PT/INR, D-dimer PT 12.0 Seconds (9.4-12.1) 05/09/18 10:26 Consult Discharge Plan - Plan Instructions: Pancreatitis (DC) Referrals: Mau Ellis MD [Primary Care Provider] - 05/17/18 9:45 am Prescriptions: OxyCODONE/APAP 5/325 [Percocet 5/325 MG] 1 each PO Q4HR PRN 2 Days #8 tablet PRN Reason: Pain amLODIPine [Norvasc] 10 mg PO DAILY 30 Days #30 tablet Carvedilol [Coreg] 6.25 mg PO BIDWM 30 Days #60 tablet
== END 2018-05-11 12:28 | disposition home or self-care (01) ==
LOC: 3ANU 05:16 → EMEROO 05:16 → 3ANU 10:21
PROVIDERS: ADMIT Internal Medicine; ATTEND Internal Medicine

== ENCOUNTER 2019-05-08 19:15 | Inpatient (IN) ==
[2019-05-08 19:48] LABS: Bilirubin,Urine Negative (Negative); Blood,Urine Small (Negative); Clarity,Urine Clear (Clear); Color,Urine Yellow (Yellow); Glucose,Urine (UA) Normal (Normal); Ketones,Urine Negative (Negative); Leukocyte Esterase,Urine Trace (Negative); Nitrite,Urine Negative (Negative); Protein,Urine Trace mg/dL (Neg-Trace); Specific Gravity,Urine 1.025 (1.010-1.025); Urobilinogen,Urine Normal (Normal)
[2019-05-08 19:49] LABS: Bacteria,Urine None Seen per hpf (None-Few); Hyaline Casts,Urine None Seen per lpf (None-Few); Squamous Epithelial Cell,Urine Many per lpf (None-Few)
[2019-05-08] MEDS ORDERED: 0.9 % Sodium Chloride 1,000 ML IVC ONE (20:14)
[2019-05-08] MEDS ORDERED: Promethazine 25 MG in 0.9 % Sodium Chloride 50 ML IVPB ONE (20:14)
[2019-05-08] MEDS ORDERED: 0.9 % Sodium Chloride 500 ML ONE (20:16)
[2019-05-08 20:20] LABS: Basophils # 0.1 K/mcL (0.0-0.2); Basophils % 0.4 %; Eosinophils % 0.2 %; Hematocrit 46.8 % (35.3-44.9); Hemoglobin 16.2 g/dL (11.5-15.4); Immature Granulocytes % 0.3 % (0-4); Lymphocytes # 2.5 K/mcL (0.6-4.6); Lymphocytes % 16.9 %; Mean Corpuscular HGB Conc 34.6 g/dL (31.6-35.5); Mean Corpuscular Hemoglobin 31.2 pg (28.0-33.3); Mean Platelet Volume 9.7 fL (9.4-12.4); Monocytes # 1.3 K/mcL (0.0-1.3); Monocytes % 9.1 %; Neutrophils # 10.8 K/mcL (1.6-8.9); Platelet Count 332 K/mcL (140-400); Segmented Neutrophils % 73.1 %; White Blood Count 14.7 K/mcL (4.3-11.1)
[2019-05-08] MEDS ORDERED: *HR* FentaNYL (PF) 100 MCG/2 ML VIAL IVP ONE (20:34)
[2019-05-08 20:41] LABS: BUN/Creatinine Ratio 25 (6-26); Blood Urea Nitrogen 22 mg/dL (6-20); Calcium 10.1 mg/dL (8.6-10.3); Carbon Dioxide 22 mEq/L (23-29); Chloride 100 mEq/L (98-107); Glucose 126 mg/dL (70-105); Osmolality,Calculated 279 (280-300); Potassium 3.7 mEq/L (3.5-5.1); Sodium 132 mEq/L (136-145); Troponin I < 0.03 ng/mL (< 0.04); eGFR For African Americans > 60 (> 60); eGFR For Non-African Americans > 60 (> 60)
[2019-05-08 20:42] LABS: Albumin 4.9 g/dL (3.5-5.7); Albumin/Globulin Ratio 1.4 (1.1-2.2); Bilirubin,Direct 0.1 mg/dL (0.0-0.2); Bilirubin,Indirect 0.7 mg/dL (0.0-1.2); Bilirubin,Total 0.8 mg/dL (0.3-1.0); Globulin 3.4 g/dL (2.4-3.5); Total Protein 8.3 g/dL (6.4-8.9)
[2019-05-08] MEDS ORDERED: Ondansetron 4 MG/2 ML VIAL IVP ONE (22:03)
[2019-05-09] MEDS ORDERED: Naloxone 0.4 MG/ML INJ IVP PRN (01:06)
[2019-05-09] MEDS ORDERED: *HR* Metoprolol 5 MG/5 ML VIAL IVP PRN (04:10)
[2019-05-09] MEDS: 0.9 % Sodium Chloride 1,000 ML IVC SCH ×2 (04:38→12:04)
[2019-05-09] MEDS: Pantoprazole 40 MG VIAL IVP SCH (04:38)
[2019-05-09] MEDS: Ondansetron 4 MG/2 ML VIAL IVP PRN (04:39)
[2019-05-09] MEDS: *HR* HYDROmorphone (PF) 1 MG/ML SYRINGE IVP PRN ×4 (04:39→21:18)
[2019-05-09] MEDS: *HR* Heparin 5,000 UNIT/ML VIAL SQ SCH ×2 (06:37→18:24)
[2019-05-09 08:37] LABS: Hematocrit 43.3 % (35.3-44.9); Hemoglobin 15.1 g/dL (11.5-15.4); Mean Corpuscular HGB Conc 34.9 g/dL (31.6-35.5); Mean Corpuscular Volume 91.7 fL (83.0-100.0); Mean Platelet Volume 9.3 fL (9.4-12.4); Platelet Count 291 K/mcL (140-400); Red Blood Count 4.72 M/mcL (3.82-4.97); Red Cell Distribution Width 12.1 % (11.5-14.5); White Blood Count 11.5 K/mcL (4.3-11.1)
[2019-05-09 08:44] LABS: Estimated Average Glucose 128 mg/dl
[2019-05-09 09:01] LABS: Chol/HDL Ratio 4.5 (0-4.9)
[2019-05-09] MEDS: *HR* Promethazine 25 MG/ML VIAL IVP PRN ×2 (09:01→19:48)
[2019-05-09 09:05] LABS: Alanine Aminotransferase 19 Units/L (7-52); Albumin 4.1 g/dL (3.5-5.7); Albumin/Globulin Ratio 1.4 (1.1-2.2); Alkaline Phosphatase 50 Units/L (34-104); Aspartate Amino Transferase 15 Units/L (13-39); Bilirubin,Direct 0.2 mg/dL (0.0-0.2); Bilirubin,Indirect 0.6 mg/dL (0.0-1.2); Bilirubin,Total 0.8 mg/dL (0.3-1.0); Blood Urea Nitrogen 19 mg/dL (6-20); Calcium 8.8 mg/dL (8.6-10.3); Carbon Dioxide 21 mEq/L (23-29); Chloride 103 mEq/L (98-107); Globulin 2.9 g/dL (2.4-3.5); Glucose 106 mg/dL (70-105); Osmolality,Calculated 287 (280-300); Potassium 3.2 mEq/L (3.5-5.1); Sodium 137 mEq/L (136-145)
[2019-05-09 09:35] LABS: BUN/Creatinine Ratio 25 (6-26); eGFR For African Americans > 60 (> 60); eGFR For Non-African Americans > 60 (> 60)
[2019-05-09] MEDS: 0.9 % Sodium Chloride w KCl 40 MEQ/1,000 ML MLS IVC SCH (21:17)
[2019-05-10] MEDS: *HR* HYDROmorphone (PF) 1 MG/ML SYRINGE IVP PRN ×5 (01:54→23:48)
[2019-05-10] MEDS: *HR* Promethazine 25 MG/ML VIAL IVP PRN ×3 (01:54→22:02)
[2019-05-10] MEDS: *HR* Heparin 5,000 UNIT/ML VIAL SQ SCH ×2 (05:22→17:52)
[2019-05-10] MEDS: 0.9 % Sodium Chloride w KCl 40 MEQ/1,000 ML MLS IVC SCH ×4 (05:22→22:02)
[2019-05-10] MEDS: Pantoprazole 40 MG VIAL IVP SCH ×2 (05:22→17:48)
[2019-05-10] MEDS: Ondansetron 4 MG/2 ML VIAL IVP PRN ×2 (11:17→17:49)
[2019-05-10] MEDS ORDERED: Acetaminophen 325 MG TABLET PO PRN (13:23)
[2019-05-10] MEDS: *HR* OxyCODONE/APAP 10/325 TABLET PO PRN ×2 (15:34→22:02)
[2019-05-10] MEDS: carvediloL 6.25 MG TABLET PO SCH (17:49)
[2019-05-11] MEDS: *HR* Heparin 5,000 UNIT/ML VIAL SQ SCH ×2 (04:55→17:14)
[2019-05-11] MEDS: Pantoprazole 40 MG VIAL IVP SCH ×2 (04:55→17:14)
[2019-05-11] MEDS: *HR* HYDROmorphone (PF) 1 MG/ML SYRINGE IVP PRN ×4 (05:38→19:47)
[2019-05-11] MEDS: *HR* Promethazine 25 MG/ML VIAL IVP PRN ×3 (05:40→19:46)
[2019-05-11] MEDS: 0.9 % Sodium Chloride w KCl 40 MEQ/1,000 ML MLS IVC SCH ×3 (09:50→23:54)
[2019-05-11] MEDS: Ondansetron 4 MG/2 ML VIAL IVP PRN ×3 (09:51→23:57)
[2019-05-11] MEDS: carvediloL 6.25 MG TABLET PO SCH ×2 (09:53→17:14)
[2019-05-11] MEDS: *HR* OxyCODONE/APAP 10/325 TABLET PO PRN ×2 (12:36→23:53)
[2019-05-11] MEDS ORDERED: Lidocaine -MPF 2% 2 ML VIAL ONE (12:58)
[2019-05-11] MEDS ORDERED: *HR* Propofol 200 MG/20 ML VIAL IVP ONE (12:58)
[2019-05-11] MEDS ORDERED: 0.9 % Sodium Chloride 1,000 ML IVC SCH (14:00)
[2019-05-12 04:11] LABS: BUN/Creatinine Ratio 14 (6-26); Blood Urea Nitrogen 10 mg/dL (6-20); Calcium 8.9 mg/dL (8.6-10.3); Carbon Dioxide 23 mEq/L (23-29); Chloride 104 mEq/L (98-107); Glucose 157 mg/dL (70-105); Osmolality,Calculated 282 (280-300); Potassium 4.7 mEq/L (3.5-5.1); Sodium 135 mEq/L (136-145); eGFR For African Americans > 60 (> 60); eGFR For Non-African Americans > 60 (> 60)
[2019-05-12] MEDS: *HR* OxyCODONE/APAP 10/325 TABLET PO PRN ×2 (05:58→10:55)
[2019-05-12] MEDS: Pantoprazole 40 MG VIAL IVP SCH (05:59)
[2019-05-12] MEDS: *HR* Heparin 5,000 UNIT/ML VIAL SQ SCH (05:59)
[2019-05-12] MEDS: carvediloL 6.25 MG TABLET PO SCH (09:32)
[2019-05-12] MEDS: 0.9 % Sodium Chloride w KCl 40 MEQ/1,000 ML MLS IVC SCH (09:33)
[2019-05-12] MEDS: *HR* Promethazine 25 MG/ML VIAL IVP PRN (10:54)
[2019-05-12 11:52] VITALS: BP 145/91
== END 2019-05-12 13:33 | disposition home or self-care (01) | DRG 241 ==
LOC: 3ANU 19:15 → EMEROOARM 19:15 → 3ANU 05-09 00:19 → SUATTDRO 05-10 14:54
PROVIDERS: ADMIT Family Medicine; ATTEND Internal Medicine
PROC: ENDOEBX (2019-05-11 17:30)